=== PATIENT | female | born 1995 | race African-American/Black ===

== ENCOUNTER 2017-02-20 17:01 | Emergency (ER) | payer BC, SELFPAY ==
[2017-02-20 17:57] LABS: Bilirubin Negative (Negative); Blood, Urine Negative (Negative); Glucose, Urine (Dipstick) Negative (Negative); Ketone, Urine Negative (Negative); Nitrite Negative (Negative); Protein, Urine (Dipstick) Negative (Neg-Trace)
[2017-02-20 18:00] LABS: Bacteria/HPF 1+ HPF (None Seen); Hyaline Casts/LPF 0-3 HYALINE CAST LPF (0-3 Hyaline); WBC/HPF 0-3 HPF (0-3)
[2017-02-20] MEDS ORDERED: Ondansetron ODT 8 MG TAB ONE (18:02)
[2017-02-20] MEDS ORDERED: Sulfameth/Trimethoprim DS 800-160mg TAB ONE (18:45)
== END 2017-02-20 19:24 | disposition home or self-care (01) ==
LOC: ERS 17:01
DX: N39.0 Urinary tract infection, site not specified (principal); R11.2 Nausea with vomiting, unspecified; Z87.891 Personal history of nicotine dependence
CPT/HCPCS: 81003; 81015; 81025; 99284

== ENCOUNTER 2017-05-14 08:45 | Emergency (ER) | payer BC ==
[2017-05-14] MEDS ORDERED: Acetaminophen 500 MG TAB ONE (09:45)
[2017-05-14] MEDS ORDERED: Ibuprofen 800 MG TAB ONE (09:45)
== END 2017-05-14 09:48 | disposition home or self-care (01) ==
LOC: ERS 08:45
DX: B34.9 Viral infection, unspecified (principal); Z87.891 Personal history of nicotine dependence
CPT/HCPCS: 87081; 87430; 99283

== ENCOUNTER 2017-08-31 22:03 | Emergency (ER) | payer BC, SELFPAY ==
--- NOTE | 2017-08-31 22:31 | RAD ---
CHEST PA AND LATERAL 08/31/17 HISTORY: 21-year-old female with history of chest pain for one week and cough for two days. COMPARISON: 02/03/08. FINDINGS: Heart size is within normal limits. The lungs are clear. IMPRESSION: No acute intrathoracic disease. POS: [facility]
--- NOTE | 2017-11-06 14:22 | EKG ---
Test Reason : CP Blood Pressure : / mmHG Vent. Rate : 073 BPM Atrial Rate : 073 BPM P-R Int : 164 ms QRS Dur : 088 ms QT Int : 372 ms P-R-T Axes : 040 -07 010 degrees QTc Int : 409 ms Normal sinus rhythm Voltage criteria for left ventricular hypertrophy Abnormal ECG Confirmed by CLINTON GARY, DARBY Gibbons ([id number]), news videotape editor SEAN MARTINEZ ([id number]) on 11/06/2017 2:21:34 PM Referred By: Confirmed By:DARBY ALONZO MD
== END 2017-09-01 00:04 | disposition home or self-care (01) ==
LOC: ERS 22:03
DX: R07.89 Other chest pain (principal); Z87.891 Personal history of nicotine dependence
CPT/HCPCS: 71046; 93005

== ENCOUNTER 2017-09-08 21:20 | Emergency (ER) | payer SELFPAY ==
[2017-09-08 21:54] LABS: Bilirubin Small (Negative); Blood, Urine Negative (Negative); Clarity CLOUDY (Clear); Glucose, Urine (Dipstick) Negative (Negative); Leukocyte Negative (Negative); Nitrite Negative (Negative); Protein, Urine (Dipstick) 30 mg/dL (Neg-Trace); Specific Gravity, Urine 1.039 (1.002-1.036)
[2017-09-08 21:56] LABS: Bacteria/HPF Rare-Few HPF (None Seen); Hyaline Casts/LPF 4-6 HYALINE CAST LPF (0-3 Hyaline); Pathc Cast-AUWi Flag 1.16 (0-2.49); Squamous Epithelial 21-50 HPF (0-3)
[2017-09-08 22:07] LABS: Amphetamine Not Detected (NotDetected); Barbiturates Screen Not Detected (NotDetected); Benzodiazepine Screen Not Detected (NotDetected); Cocaine Metabolite Screen Not Detected (NotDetected); Medtox Control Line Valid? VALID (VALID); Medtox Reader # READER 1; Methadone Not Detected (NotDetected); Methamphetamine Not Detected (NotDetected); Opiate Screen Not Detected (NotDetected); Oxycodone Screen Not Detected (NotDetected); Phencyclidine (PCP) Not Detected (NotDetected); THC/Cannabinoid Screen Not Detected (NotDetected); Tricyclic Screen Not Detected (NotDetected)
[2017-09-08 22:11] LABS: #Eosinphils 0.1 thou/uL (0.0-0.7); #Monocytes 0.5 thou/uL (0.11-0.59); #Neutrophils 3.5 thou/uL (1.40-6.50); %Basophils 0.8 % (0.0-1.0); %Eosinophils 1.9 % (0.0-10.0); %Lymphocytes 32.5 % (28.0-48.0); %Monocytes 7.5 % (0.0-4.0); %Neutrophils 57.4 % (31.0-61.0); Hemoglobin 12.5 g/dL (12.0-16.0); Mean Corpuscular HGB CONC 33.4 g/dL (32.0-36.0); Mean Corpuscular Hemoglobin 27.7 pg (25.0-35.0); Mean Platelet Volume 6.5 fL (7.4-10.4); Platelet Count 348 thou/uL (130-400)
[2017-09-08] MEDS ORDERED: Ondansetron ODT 4 MG TAB ONE (22:26)
[2017-09-08] MEDS ORDERED: Ondansetron ODT 8 MG TAB ONE (22:27)
[2017-09-08 22:34] LABS: ALT (SGPT) 12 U/L (8-55); AST (SGOT) 16 U/L (5-30); Albumin 4.6 g/dL (3.5-5.0); Alkaline Phosphatase 84 U/L (40-150); Anion Gap 12 mmol/L (10-20); BUN (Urea Nitrogen) 10 mg/dL (8.4-21.0); Bilirubin, Total 0.7 mg/dL (0.2-1.2); Calc. Creatinine Clearance 0 mL/min (70-130); Carbon Dioxide 28 mmol/L (22-29); Chloride 103 mmol/L (98-107); Estimated GFR-MDRD Greater than 90; Globulin 4.3 g/dL (2.4-3.5); Glucose 86 mg/dL (70-105); Lipase 11 U/L (8-78); Potassium 3.9 mmol/L (3.5-5.1); Protein, Total 8.9 g/dL (6.0-8.3); Sodium 139 mmol/L (136-145)
[2017-09-08 22:36] LABS: Acetaminophen Less than 6.0 mcg/mL (10.0-30.0); Alcohol Less than 10 mg/dL (Less than 10); Salicylate Less than 8.0 mg/dL (15.0-30.0)
[2017-09-08 22:38] LABS: Pregnancy Test - Urine (BHCG) Negative (Negative); Pregu Control Background? CLEAR/WHITE (CLR/WHITE); Pregu Control Bar Appear? YES (CONTROL BAR); Specific Gravity 1.039 (1.002-1.036)
== END 2017-09-09 02:47 | disposition home or self-care (01) ==
LOC: ERS 21:20
DX: F43.21 Adjustment disorder with depressed mood (principal); R11.2 Nausea with vomiting, unspecified; Z87.891 Personal history of nicotine dependence
CPT/HCPCS: 36415; 80053; 80306; 80307; 81003; 81015; 81025; 83690; 85025; 96360; 96361; Q0162

== ENCOUNTER 2017-11-12 21:11 | Emergency (ER) | payer SELFPAY | END 2017-11-12 22:33 | LOC: ERS 21:11 | DX: H66.91 Otitis media, unspecified, right ear (principal); J02.9 Acute pharyngitis, unspecified | CPT/HCPCS: 99282 ==

== ENCOUNTER 2018-01-19 00:31 | Emergency (ER) | payer SELFPAY | END 2018-01-19 01:45 | disposition left against medical advice (07) | LOC: ERS 00:31 | DX: Z53.21 Procedure and treatment not carried out due to patient leaving prior to being seen by health care provider (principal) ==

== ENCOUNTER 2018-02-05 13:03 | Emergency (ER) | payer SELFPAY | END 2018-02-05 13:43 | disposition home or self-care (01) | LOC: ERS 13:03 | DX: B35.3 Tinea pedis (principal); L85.9 Epidermal thickening, unspecified | CPT/HCPCS: 99282 ==

== ENCOUNTER 2018-02-14 14:43 | Emergency (ER) | payer OTHER, SELFPAY ==
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
[2018-02-14] MEDS ORDERED: Ketorolac Tromethamine 30 MG/ML VIAL ONE (16:15)
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
== END 2018-02-14 18:18 | disposition home or self-care (01) ==
LOC: ERS 14:43
DX: S50.12XA Contusion of left forearm, initial encounter (principal); S60.812A Abrasion of left wrist, initial encounter; S60.414A Abrasion of right ring finger, initial encounter; S60.413A Abrasion of left middle finger, initial encounter; S60.417A Abrasion of left little finger, initial encounter; V43.52XA Car driver injured in collision with other type car in traffic accident, initial encounter
CPT/HCPCS: 71045; 96374; G0390; J1885

== ENCOUNTER 2019-02-17 19:30 | Emergency (ER) | payer SELFPAY ==
[2019-02-17] MEDS ORDERED: diphenhydrAMINE 50 MG CAP ONE (20:00)
== END 2019-02-17 20:35 | disposition home or self-care (01) ==
LOC: ERS 19:30
DX: Z77.098 Contact with and (suspected) exposure to other hazardous, chiefly nonmedicinal, chemicals (principal)
CPT/HCPCS: 99283; Q0163

== ENCOUNTER 2019-08-24 12:45 | Emergency (ER) | payer BC, OTHER | END 2019-08-24 13:30 | disposition home or self-care (01) | LOC: ERS 12:45 | DX: J06.9 Acute upper respiratory infection, unspecified (principal) | CPT/HCPCS: 99283 ==

== ENCOUNTER 2020-06-12 18:24 | Emergency (ER) | payer BC ==
[2020-06-12 18:59] LABS: #Basophils 0.1 thou/uL (0.0-0.2); #Eosinphils 0.1 thou/uL (0.0-0.7); #Lymphocytes 1.7 thou/uL (1.20-3.40); #Monocytes 0.3 thou/uL (0.11-0.59); #Neutrophils 1.9 thou/uL (1.40-6.50); %Eosinophils 2.4 % (0.0-10.0); %Lymphocytes 41.5 % (21.0-51.0); %Monocytes 7.7 % (0.0-10.0); %Neutrophils 46.4 % (42.0-75.0); Hemoglobin 11.1 g/dL (12.0-16.0); Mean Corpuscular HGB CONC 33.4 g/dL (32.0-36.0); Mean Corpuscular Hemoglobin 28.8 pg (27.0-31.0); Mean Corpuscular Volume 86.4 fL (78.0-98.0); Mean Platelet Volume 7.9 fL (7.4-10.4); Platelet Count 227 thou/uL (130-400); RBC Distribution Width 12.3 % (11.5-14.5); Red Blood Cell (RBC) Count 3.84 mill/uL (4.20-5.40); White Blood Cell (WBC) Count 4.1 thou/uL (4.8-10.8)
[2020-06-12 19:29] LABS: ALT (SGPT) 11 U/L (8-55); AST (SGOT) 23 U/L (5-34); Alkaline Phosphatase 61 U/L (40-110); Anion Gap 14 mmol/L (10-20); BUN (Urea Nitrogen) 7 mg/dL (7.0-18.7); Bilirubin, Total 0.4 mg/dL (0.2-1.2); Calc. Creatinine Clearance 0 mL/min (70-130); Calcium 8.9 mg/dL (7.8-10.44); Carbon Dioxide 24 mmol/L (22-29); Chloride 104 mmol/L (98-107); Globulin 4.3 g/dL (2.4-3.5); Glucose 89 mg/dL (70-105); Potassium 4.3 mmol/L (3.5-5.1); Protein, Total 8.3 g/dL (6.0-8.3); Sodium 138 mmol/L (136-145)
== END 2020-06-12 20:22 | disposition home or self-care (01) ==
LOC: ERS 18:24
DX: R56.9 Unspecified convulsions (principal)
CPT/HCPCS: 36416; 80053; 85025; 93005

== ENCOUNTER 2020-08-10 02:41 | Emergency (ER) | payer BC ==
[2020-08-10] MEDS ORDERED: Lorazepam 2 MG/ML VIAL ONE ×2 (02:52→03:09)
[2020-08-10 03:01] LABS: #Basophils 0.1 thou/uL (0.0-0.2); #Monocytes 0.4 thou/uL (0.11-0.59); %Basophils 1.7 % (0.0-1.0); %Eosinophils 0.8 % (0.0-10.0); %Lymphocytes 35.6 % (21.0-51.0); %Monocytes 7.5 % (0.0-10.0); %Neutrophils 54.4 % (42.0-75.0); Hemoglobin 11.6 g/dL (12.0-16.0); Mean Corpuscular HGB CONC 33.7 g/dL (32.0-36.0); Mean Corpuscular Hemoglobin 29.5 pg (27.0-31.0); Mean Corpuscular Volume 87.6 fL (78.0-98.0); Mean Platelet Volume 7.3 fL (7.4-10.4); Platelet Count 284 thou/uL (130-400); RBC Distribution Width 12.3 % (11.5-14.5); Red Blood Cell (RBC) Count 3.94 mill/uL (4.20-5.40); White Blood Cell (WBC) Count 5.5 thou/uL (4.8-10.8)
[2020-08-10] MEDS ORDERED: levETIRAcetam in NS 0 ML ONE (03:09)
[2020-08-10] MEDS ORDERED: levETIRAcetam in NS 100 ML ONE (03:11)
[2020-08-10 03:20] LABS: Acetaminophen Less than 6.0 mcg/mL (10.0-30.0); Alcohol 121 mg/dL (Less than 10); BHCG - Serum Negative (NEGATIVE); Pregs Control Background? CLEAR/WHITE (CLR/WHITE); Pregs Control Bar Appear? YES (CONTROL BAR); Salicylate Less than 8.0 mg/dL (15.0-30.0)
[2020-08-10 03:21] LABS: ALT (SGPT) 11 U/L (8-55); AST (SGOT) 18 U/L (5-34); Albumin 4.4 g/dL (3.5-5.0); Alkaline Phosphatase 66 U/L (40-110); Anion Gap 15 mmol/L (10-20); BUN (Urea Nitrogen) 12 mg/dL (7.0-18.7); Bilirubin, Total 0.5 mg/dL (0.2-1.2); Calc. Creatinine Clearance 0 mL/min (70-130); Calcium 8.9 mg/dL (7.8-10.44); Carbon Dioxide 20 mmol/L (22-29); Chloride 109 mmol/L (98-107); Globulin 4.2 g/dL (2.4-3.5); Glucose 83 mg/dL (70-105); Protein, Total 8.6 g/dL (6.0-8.3); Sodium 140 mmol/L (136-145)
[2020-08-10 03:36] LABS: Bilirubin Negative (Negative); Blood, Urine Negative (Negative); Clarity Clear (Clear); Glucose, Urine (Dipstick) Normal (Negative); Ketone, Urine Negative (Negative); Leukocyte Negative Leu/uL (Negative); Nitrite Negative (Negative); Protein, Urine (Dipstick) 20 mg/dL (Neg-Trace); Specific Gravity, Urine 1.032 (1.002-1.036); Urobilinogen Normal mg/dL (Less than 2)
[2020-08-10 03:53] LABS: Amphetamine Not Detected (NotDetected); Barbiturates Screen Not Detected (NotDetected); Benzodiazepine Screen Not Detected (NotDetected); Cocaine Metabolite Screen Not Detected (NotDetected); Medtox Control Line Valid? VALID (VALID); Medtox Reader # READER 4; Methadone Not Detected (NotDetected); Methamphetamine Not Detected (NotDetected); Opiate Screen Not Detected (NotDetected); Oxycodone Screen Not Detected (NotDetected); Phencyclidine (PCP) Not Detected (NotDetected); THC/Cannabinoid Screen Detected (NotDetected); Tricyclic Screen Not Detected (NotDetected)
[2020-08-10 05:56] LABS: SARS-CoV-2 NAA Rapid Test Not Detected (NotDetected)
== END 2020-08-10 09:51 | disposition short-term general hospital (02) ==
LOC: ERS 02:41
DX: G40.901 Epilepsy, unspecified, not intractable, with status epilepticus (principal); Z20.822 Contact with and (suspected) exposure to COVID-19
CPT/HCPCS: 36416; 51701; 70450; 80053; 80306; 80307; 81003; 84703; 85025; 93005; 96365; 96375; J1953; J2060; U0002

== ENCOUNTER 2021-04-11 12:11 | Emergency (ER) | payer BC ==
[2021-04-11] MEDS ORDERED: Acetaminophen 500 MG TAB ONE (13:12)
== END 2021-04-11 13:30 | disposition home or self-care (01) ==
LOC: ERS 12:11
DX: S93.491A Sprain of other ligament of right ankle, initial encounter (principal); W10.9XXA Fall (on) (from) unspecified stairs and steps, initial encounter

== ENCOUNTER 2023-04-13 13:23 | Emergency (ER) | payer BC, SELFPAY | END 2023-04-13 15:11 | disposition left against medical advice (07) | LOC: ERS 13:23 | DX: Z53.21 Procedure and treatment not carried out due to patient leaving prior to being seen by health care provider (principal) ==